=== PATIENT | female | born 1950 | race Caucasian/White ===

== ENCOUNTER → 2016-10-02 | Outpatient (CLI) | payer MEDICARE | LOC: MC.RAD 13:08 | DX: Z12.31 Encounter for screening mammogram for malignant neoplasm of breast (principal) ==

== ENCOUNTER → 2017-10-08 | Outpatient (CLI) | payer MEDICARE | LOC: MC.RAD 10:30 | DX: Z12.31 Encounter for screening mammogram for malignant neoplasm of breast (principal) ==

== ENCOUNTER 2018-05-10 08:32 | Day surgery (SDC) | payer MEDICARE ==
[~2018-05-10] VITALS: Ht 162.6 cm; Wt 73.1 kg
[2018-05-10 09:27] VITALS: BP 128/50; PULSE 55; TEMP 97.3
[2018-05-10] MEDS ORDERED: LIPITOR 10MG10 MG PO (09:30)
[2018-05-10] MEDS ORDERED: NAPROSYN 2250 MG/TAB PO (09:30)
[2018-05-10 11:32] VITALS: BP 122/51; PULSE 65; TEMP 97.2
--- NOTE | 2018-05-10 11:32 | NUR ---
Patient wheeled back into bay 5. is at bedside. Alert and oriented. States pain is 6/10 to right chest wall where cath is located. No complaints of nausea. VSS, WNL. Requesting soda and muffin, tolerating well. 2 dry dressings located to right chest wall, intact, dry. Call moreira within reach, will continue to monitor.
[2018-05-10 11:47] VITALS: BP 128/53; PULSE 54
--- NOTE | 2018-05-10 11:50 | NUR ---
Pain medication given per MD orders. Will continue to monitor.
[2018-05-10 12:02] VITALS: BP 128/62; PULSE 61
[2018-05-10 12:15] VITALS: BP 119/51; PULSE 60
--- NOTE | 2018-05-10 12:34 | NUR ---
Patient states that pain is starting to slowly come down. Is currently 5/10 to right chest wall.
--- NOTE | 2018-05-10 12:50 | NUR ---
Patient states she is ready to go home. Discharge instructions reviewed with patient and . All questions answered. States pain is decreasing. Patient to be driven home by . Taken via wheel chair to lobby.
== END 2018-05-10 12:50 | disposition home or self-care (01) ==
LOC: SDCO 08:32
DX: C54.1 Malignant neoplasm of endometrium (principal); Z87.891 Personal history of nicotine dependence; E78.00 Pure hypercholesterolemia, unspecified; E78.5 Hyperlipidemia, unspecified; Z90.710 Acquired absence of both cervix and uterus; Z80.0 Family history of malignant neoplasm of digestive organs; Z80.1 Family history of malignant neoplasm of trachea, bronchus and lung; J45.909 Unspecified asthma, uncomplicated; Z79.899 Other long term (current) drug therapy; M43.6 Torticollis
CPT/HCPCS: C1788; J0690; J1100; J1644; J1885; J2250; J2405; J2704; J3010; J7120

== ENCOUNTER → 2018-06-25 | Outpatient (CLI) | payer MEDICARE ==
[~2018-06-25] MED LIST: LIPITOR 10MG10 MG PO; NAPROSYN 2250 MG/TAB PO
== END ==
LOC: COL.VAS 11:40
DX: M79.89 Other specified soft tissue disorders (principal)

== ENCOUNTER → 2018-11-01 | Outpatient (CLI) | payer MEDICARE | LOC: MC.RAD 13:20 | DX: Z12.31 Encounter for screening mammogram for malignant neoplasm of breast (principal) ==

== ENCOUNTER 2018-11-14 12:30 | Outpatient (RCR) | payer MEDICARE | END 2018-11-22 16:58 | disposition home or self-care (01) | LOC: WSPT 12:30 | DX: I89.0 Lymphedema, not elsewhere classified (principal) ==

== ENCOUNTER → 2019-12-11 | Outpatient (CLI) | payer MEDICARE | LOC: MC.RAD 15:17 | DX: Z12.31 Encounter for screening mammogram for malignant neoplasm of breast (principal) ==

== ENCOUNTER → 2019-12-23 | Outpatient (CLI) | payer MEDICARE | LOC: COL.RAD 14:00 | DX: M17.12 Unilateral primary osteoarthritis, left knee (principal); M11.262 Other chondrocalcinosis, left knee ==

== ENCOUNTER → 2020-10-28 | Outpatient (CLI) | payer MEDICARE | LOC: COL.RAD 12:16 | DX: G62.0 Drug-induced polyneuropathy (principal); T45.1X5A Adverse effect of antineoplastic and immunosuppressive drugs, initial encounter | CPT/HCPCS: G0260; J3301 ==

== ENCOUNTER → 2020-12-22 | Outpatient (CLI) | payer MEDICARE | LOC: MC.RAD 14:27 | DX: Z12.31 Encounter for screening mammogram for malignant neoplasm of breast (principal) ==

== ENCOUNTER → 2022-07-04 | Day surgery (SDC) | payer MEDICARE ==
[~2022-07-04] VITALS: Ht 162.6 cm; Wt 82.7 kg
[2022-07-04 09:20] VITALS: BP 108/38; PULSE 72; TEMP 97.9
--- NOTE | 2022-07-04 09:20 | NUR ---
0920 PATIENT RETURNS TO ROOM 3 VIA CART. PATIENT IS DROWSY BUT ALERTS TO VERBAL STIMULI. PATIENT AMBULATES TO RECLINER WITH THE ASSISTANCE OF 2 NURSES. RESPIRATIONS EVEN AND UNLABORED. VITAL SIGNS OBTAINED. PATIENT IN ROOM. PATIENT REQUESTED APPLE JUICE, NO DIFFICULTIES SWALLOWING. 0945 THIS NURSE REVIEWED DISCHARGE INSTRUCTIONS WITH PATIENT AND PATIENT . BOTH VERBALIZED UNDERSTANDING. 0948 THIS NURSE DISCONTINUED IV FROM RIGHT FOREARM WITH NO DIFFICULTIES. 0956 DOCTOR IN THE ROOM TO SPEAK WITH PATIENT. 1000 PATIENT DISCHARGES FROM UNIT VIA WHEELCHAIR IN STABLE CONDITION.
[2022-07-04 09:35] VITALS: BP 127/57; PULSE 54
[2022-07-04 09:50] VITALS: BP 140/56; PULSE 56
[2022-07-04 10:27] VITALS: BP 141/66; PULSE 67; TEMP 97.9
== END ==
LOC: SDCO 06-03 09:00
DX: Z12.11 Encounter for screening for malignant neoplasm of colon (principal); K64.0 First degree hemorrhoids; K57.30 Diverticulosis of large intestine without perforation or abscess without bleeding; Z80.0 Family history of malignant neoplasm of digestive organs; Z85.42 Personal history of malignant neoplasm of other parts of uterus; Z85.820 Personal history of malignant melanoma of skin; Z85.828 Personal history of other malignant neoplasm of skin; Z87.891 Personal history of nicotine dependence; Z28.310 Unvaccinated for COVID-19
CPT/HCPCS: J2704

== ENCOUNTER 2023-11-12 10:06 | Day surgery (SDC) | payer MEDICARE ==
[~2023-11-12] VITALS: Ht 160 cm; Wt 82.8 kg
[~2023-11-12 10:06] MED LIST changes: +LR 1,000 ML IV SCH; +Ondansetron 4 MG/2 ML VIAL IV PRN
[2023-11-12 11:38] VITALS: BP 122/59; PULSE 64; TEMP 97
[2023-11-12] MEDS ORDERED: NEXIUM 40MG40 MG PO (12:09)
[2023-11-12] MEDS ORDERED: PROAIR HFA0.09 MG/AC IH (12:10)
[2023-11-12 12:20] VITALS: BP 135/63; PULSE 66
[2023-11-12 12:35] VITALS: BP 139/67; PULSE 65
[2023-11-12 12:50] VITALS: BP 139/59; PULSE 66
--- NOTE | 2023-11-12 18:45 | NUR ---
[address] [facility] VIA CART. PT AWAKE AND ALERT. RESPIRATIONS UNLABORED. AMBULATED TO RECLINER CHAIR WITH 2:1 SBA. PT DENIES NAUSEA OR ABDOMINAL PAIN. HOOKED UP TO MONITOR AND VS OBTAINED. CALL LIGHT AT SIDE AND PRESENT. 1225 TOLERATING MUFFIN AND COFFEE WITHOUT NAUSEA OR DIFFICULTY SWALLOWING. 1245 IN ROOM SPEAKING WITH PATIENT. 1300 D/C INSTRUCTIONS REVIEWED WITH PATIENT. PT VERBALIZED UNDERSTANDING AND A COPY OF INSTRUCTIONS PROVIDED IN D/C FOLDER. 1310 PATIENT DRESSES SELF. 1315 PATIENT DISCHARGED FROM UNIT VIA W/C TO A PERSONAL VEHICLE. PT LEFT HOSPITAL IN STABLE CONDITION.
== END 2023-11-12 13:05 | disposition home or self-care (01) ==
LOC: SDCO 10:06
DX: D50.9 Iron deficiency anemia, unspecified (principal); K92.2 Gastrointestinal hemorrhage, unspecified; K21.9 Gastro-esophageal reflux disease without esophagitis; J45.909 Unspecified asthma, uncomplicated; Z79.01 Long term (current) use of anticoagulants; Z86.711 Personal history of pulmonary embolism; Z85.42 Personal history of malignant neoplasm of other parts of uterus; Z85.828 Personal history of other malignant neoplasm of skin
CPT/HCPCS: J2704